=== PATIENT | male | born 1960 | race African-American/Black ===

== ENCOUNTER 2022-10-30 20:14 | Emergency (ER) | payer SELFPAY ==
[~2022-10-30] VITALS: Ht 172.7 cm; Wt 70.0 kg
[2022-10-30 20:34] VITALS: BP 125/72
[2022-10-31 00:46] LABS: BASOPHILS % 0.5 % (0.0-2.0); HEMATOCRIT. 44.2 % (42.0-52.0); HEMOGLOBIN. 14.7 g/dL (14.0-18.0); LYMPHOCYTES % 20.4 % (20.0-50.0); MEAN CORPUSCULAR HEMOGLOBIN 32.5 pg (28.0-32.0); MEAN CORPUSCULAR VOLUME 97.5 fL (80.0-94.0); MONOCYTES % 7.3 % (2.0-8.0); NEUTROPHILS % 70.8 % (40.0-76.0); PLATELET 398 x1000/uL (130-400); RED BLOOD CELL COUNT 4.53 mill/uL (4.7-6.1); RED CELL DISTRIBUTION WIDTH 13.7 % (11.6-14.6)
[2022-10-31 01:00] LABS: CHLORIDE 108 mEq/L (98-107)
[2022-10-31 01:09] LABS: ETHANOL BLOOD 237 mg/dL
== END 2022-10-31 10:27 | disposition left against medical advice (07) ==
LOC: ER 20:14
DX: Z53.21 Procedure and treatment not carried out due to patient leaving prior to being seen by health care provider (principal)
CPT/HCPCS: 36415; 80053; 80307; 80320; 80329; 85025; G0480